=== PATIENT | male | born 1960 | race Caucasian/White ===

== ENCOUNTER 2022-07-02 06:52 | Day surgery (SDC) | payer OTHER ==
[2022-06-30 14:19] VITALS: BMI 23.6
[2022-07-02] MEDS ORDERED: Oxymetazoline HCl 0.05% (30 ML BOT) ONE ×2 (08:17→09:53)
[2022-07-02] MEDS ORDERED: Lidocaine 1% (PF) 30 ML VIAL ONE (09:53)
[2022-07-02] MEDS ORDERED: Bacitracin Zinc Ointment 30 gm TUBE ONE (09:53)
[2022-07-02] MEDS ORDERED: EPINEPHrine 1 MG/ML AMP ONE (09:53)
[2022-07-02] MEDS ORDERED: Midazolam HCl 2 mg/2 ml Vial ONE (09:58)
[2022-07-02] MEDS ORDERED: fentaNYL Citrate/PF 100 MCG/2 ML SYRINGE ONE (09:58)
[2022-07-02] MEDS ORDERED: Dexamethasone 20 MG/5 ML VIAL ONE (10:06)
[2022-07-02] MEDS ORDERED: Lidocaine 1% MPF 2 ML VIAL ONE (10:06)
[2022-07-02] MEDS ORDERED: PROPOFOL 200 MG/20 ML VIAL ONE (10:06)
[2022-07-02] MEDS ORDERED: Ondansetron PF 4 MG/2 ML Vial ONE (10:06)
== END 2022-07-02 12:35 | disposition home or self-care (01) ==
LOC: SDC 06:52
PROVIDERS: ATTEND Otolaryngology Plastic Surgery within the Head & Neck
PROC: 09BR8ZZ Excision of Left Maxillary Sinus, Via Natural or Artificial Opening Endoscopic (ICD-10-PCS; principal; 2022-07-02)
PROC: 09BT8ZZ Excision of Left Frontal Sinus, Via Natural or Artificial Opening Endoscopic (ICD-10-PCS; principal; 2022-07-02)
PROC: 09BQ8ZZ Excision of Right Maxillary Sinus, Via Natural or Artificial Opening Endoscopic (ICD-10-PCS; principal; 2022-07-02)
PROC: 09SM0ZZ Reposition Nasal Septum, Open Approach (ICD-10-PCS; principal; 2022-07-02)
PROC: 09TU8ZZ Resection of Right Ethmoid Sinus, Via Natural or Artificial Opening Endoscopic (ICD-10-PCS; principal; 2022-07-02)
PROC: 8E09XBZ Computer Assisted Procedure of Head and Neck Region (ICD-10-PCS; principal; 2022-07-02)
PROC: 09TV8ZZ Resection of Left Ethmoid Sinus, Via Natural or Artificial Opening Endoscopic (ICD-10-PCS; principal; 2022-07-02)
PROC: 099X8ZZ Drainage of Left Sphenoid Sinus, Via Natural or Artificial Opening Endoscopic (ICD-10-PCS; principal; 2022-07-02)
PROC: 095L0ZZ Destruction of Nasal Turbinate, Open Approach (ICD-10-PCS; principal; 2022-07-02)
PROC: 09BS8ZZ Excision of Right Frontal Sinus, Via Natural or Artificial Opening Endoscopic (ICD-10-PCS; principal; 2022-07-02)
PROC: 099W8ZZ Drainage of Right Sphenoid Sinus, Via Natural or Artificial Opening Endoscopic (ICD-10-PCS; principal; 2022-07-02)
DX: J32.4 Chronic pansinusitis (principal); J34.2 Deviated nasal septum; J34.3 Hypertrophy of nasal turbinates; J33.8 Other polyp of sinus; J34.89 Other specified disorders of nose and nasal sinuses; J30.9 Allergic rhinitis, unspecified; J44.9 Chronic obstructive pulmonary disease, unspecified; Z79.52 Long term (current) use of systemic steroids
CPT/HCPCS: 88304; 93005; 93010; J0171; J1100; J2001; J2250; J2405; J2704